=== PATIENT | female | born 1955 | race Two or more races ===

== ENCOUNTER 2018-05-14 09:18 | Outpatient (CLI) | payer OTHER ==
[~2018-05-14 09:18] MED LIST: PERCOCET 10-3251 TAB
== END 2018-05-14 09:23 | disposition home or self-care (01) ==
LOC: SONOGRAMA 09:18
DX: R10.9 Unspecified abdominal pain (principal)

== ENCOUNTER 2018-08-05 13:54 | Outpatient (CLI) | payer OTHER | END 2018-08-05 14:04 | disposition home or self-care (01) | LOC: RAD 501 13:54 | DX: M25.561 Pain in right knee (principal); M25.562 Pain in left knee ==

== ENCOUNTER 2018-08-11 12:40 | Outpatient (CLI) | payer OTHER | END 2018-08-11 12:43 | disposition home or self-care (01) | LOC: MAMO-SONO 12:40 | DX: Z12.31 Encounter for screening mammogram for malignant neoplasm of breast (principal); N60.21 Fibroadenosis of right breast; N60.22 Fibroadenosis of left breast ==

== ENCOUNTER 2018-09-29 15:03 | Outpatient (CLI) | payer OTHER | END 2018-09-29 15:36 | disposition home or self-care (01) | LOC: NUCLEAR 15:03 | DX: M81.0 Age-related osteoporosis without current pathological fracture (principal) ==

== ENCOUNTER 2018-10-04 14:08 | Outpatient (CLI) | payer OTHER | END 2018-10-04 14:56 | disposition home or self-care (01) | LOC: RAD 501 14:08 | DX: L55.1 Sunburn of second degree (principal) ==

== ENCOUNTER → 2019-05-04 | Outpatient (CLI) | payer OTHER | END | disposition home or self-care (01) | LOC: RAD 13:56 | DX: M54.2 Cervicalgia (principal) ==

== ENCOUNTER 2019-06-30 12:42 | Outpatient (CLI) | payer OTHER | END 2019-06-30 12:55 | disposition home or self-care (01) | LOC: RAD 12:42 | DX: S93.102A Unspecified subluxation of left toe(s), initial encounter (principal) ==

== ENCOUNTER 2020-04-12 21:04 | Emergency (ER) | payer OTHER ==
[~2020-04-12] VITALS: Ht 167.6 cm; Wt 65.3 kg
== END 2020-04-13 09:29 | disposition home or self-care (01) ==
LOC: ER 21:04
DX: K64.4 Residual hemorrhoidal skin tags (principal); K62.89 Other specified diseases of anus and rectum

== ENCOUNTER 2020-04-19 12:10 | Outpatient (CLI) | payer OTHER | END 2020-04-19 12:19 | disposition home or self-care (01) | LOC: RAD 12:10 | PROVIDERS: ATTEND Podiatrist Foot Surgery | DX: M77.41 Metatarsalgia, right foot (principal); M77.42 Metatarsalgia, left foot ==

== ENCOUNTER → 2022-04-09 07:24 | Outpatient (CLI) | payer OTHER | END | disposition home or self-care (01) | LOC: NUCLEAR 07:24 | PROVIDERS: ATTEND Physical Medicine & Rehabilitation | DX: C79.9 Secondary malignant neoplasm of unspecified site (principal) | CPT/HCPCS: 78315; A9503 ==

== ENCOUNTER 2023-09-29 08:54 | Outpatient (CLI) | payer OTHER | END 2023-09-29 09:02 | disposition home or self-care (01) | LOC: RAD 08:54 | PROVIDERS: ATTEND Internal Medicine Cardiovascular Disease | DX: R51.9 Headache, unspecified (principal); J44.9 Chronic obstructive pulmonary disease, unspecified; M12.9 Arthropathy, unspecified; M46.47 Discitis, unspecified, lumbosacral region; N60.11 Diffuse cystic mastopathy of right breast; N60.12 Diffuse cystic mastopathy of left breast; Z12.31 Encounter for screening mammogram for malignant neoplasm of breast ==

== ENCOUNTER 2023-09-29 10:12 | Outpatient (CLI) | payer OTHER | END 2023-09-29 10:13 | disposition home or self-care (01) | LOC: NUCLEAR 10:12 | PROVIDERS: ATTEND Internal Medicine Cardiovascular Disease | DX: M81.0 Age-related osteoporosis without current pathological fracture (principal); E55.9 Vitamin D deficiency, unspecified ==

== ENCOUNTER 2024-09-29 07:12 | Outpatient (CLI) | payer OTHER | END 2024-09-29 07:15 | disposition home or self-care (01) | LOC: NUCLEAR 07:12 | PROVIDERS: ATTEND Physical Medicine & Rehabilitation | DX: M06.4 Inflammatory polyarthropathy (principal) | CPT/HCPCS: 78315; A9503 ==

== ENCOUNTER 2025-10-17 11:25 | Outpatient (CLI) | payer OTHER | END 2025-10-17 11:32 | disposition home or self-care (01) | LOC: RAD 11:25 | PROVIDERS: ATTEND Specialist | DX: M25.562 Pain in left knee (principal); M25.561 Pain in right knee ==